=== PATIENT | male | born 1955 | race African-American/Black ===

== ENCOUNTER 2020-11-17 07:36 | Inpatient (IN) ==
[2020-11-16 15:43] LABS: Basophils # 0.1 10*3/uL (0.0-0.2); Basophils % 0.5 % (0.0-0.8); Eosinophils # 0.1 10*3/uL (0.0-0.87); Hematocrit 36.2 VOL% (42.0-52.0); Hemoglobin 11.9 GM/DL (14.0-18.0); Immature Granulocytes % 1.5 %; Immature Granulocytes Absolute 0.15 #; Lymphocytes % 19.9 % (21.2-54.2); Mean Corpuscular HGB Conc 32.9 GM/DL (32-36); Mean Corpuscular Volume 94.3 FL (87-102); Mean Platelet Volume 9.4 FL (9.6-12.0); Monocytes % 3.7 % (1.7-12.7); Neutrophils % 73.4 % (38.7-73.9); Platelet Count 277 T/CUMM (130-400); Red Blood Count 3.84 MC/CUMM (3.8-5.5); Red Cell Distribution Width 14.6 % (9.3-17.3); White Blood Count 10.1 T/CUMM (4-12)
[2020-11-16 16:03] LABS: Calcium 7.9 MG/DL (8.5-10.1); Osmolality,Calculated 280.3 MOS/KG (273-304); Potassium 3.8 MMOL/L (3.5-5.1)
[2020-11-16 16:06] LABS: Eosinophils 1 % (0-10); Lymphocytes 16 % (20-55); Platelet Estimate Normal; Segmented Neutrophils 79 % (50-85); Total Cells Counted 100
[2020-11-16 16:07] LABS: Atypical Lymphocytes Few; Dohle Bodies 1+; Toxic Granulation 1+
[2020-11-17] MEDS ORDERED: LACTATED RINGERS 1,000 ML IV SCH (08:30)
[2020-11-17] MEDS ORDERED: DEXAMETHASONE 4 MG/1 ML VIAL ONE ×2 (10:01→11:12)
[2020-11-17] MEDS ORDERED: propofoL 200 MG/20 ML VIAL IV ONE (10:01)
[2020-11-17] MEDS ORDERED: LIDOCAINE 2% 5 ML VIAL ONE (10:01)
[2020-11-17] MEDS ORDERED: SEVOFLURANE 1 UNIT/15 MINUTE INH ONE ×2 (10:01→11:11)
[2020-11-17] MEDS ORDERED: MIDAZOLAM 2 MG/2 ML VIAL ONE (10:01)
[2020-11-17] MEDS ORDERED: ONDANSETRON 4 MG/2 ML VIAL ONE (10:01)
[2020-11-17] MEDS ORDERED: fentaNYL 100 MCG/2 ML VIAL ONE ×2 (10:01→10:59)
[2020-11-17] MEDS ORDERED: LIDOCAINE 1%/EPI INJ 20 ML VIAL ONE (10:47)
[2020-11-17] MEDS ORDERED: BUPIVACAINE MPF 0.25% 30 ML VIAL ONE (10:47)
[2020-11-17] MEDS ORDERED: LIDOCAINE 1% 20 ML VIAL ONE (10:49)
[2020-11-17] MEDS ORDERED: ACETAMINOPHEN INJ 1,000 MG/100 ML VIAL IV ONE (10:56)
[2020-11-17] MEDS ORDERED: KETOROLAC 30 MG/1 ML VIAL ONE (10:56)
[2020-11-17] MEDS ORDERED: HYDROmorphone 2 MG/1 ML VIAL IV PRN (11:28)
[2020-11-17] MEDS ORDERED: ONDANSETRON 4 MG/2 ML VIAL IV PRN ×2 (11:28→12:04)
[2020-11-17] MEDS ORDERED: PROMETHAZINE 25 MG/1 ML VIAL IM PRN (12:04)
[2020-11-17] MEDS ORDERED: VANCOMYCIN INJ 1,000 MG in SODIUM CHLORIDE 0.9% 250 ML IV SCH (12:04)
[2020-11-17] MEDS ORDERED: MELOXICAM 7.5 MG TABLET PO PRN (12:04)
[2020-11-17] MEDS: HYDROmorphone 2 MG/1 ML VIAL IV PRN (12:40)
[2020-11-17 13:25] LABS: Basophils % 0.4 % (0.0-0.8); Eosinophils % 0.4 % (0.00-10.9); Hematocrit 34.9 VOL% (42.0-52.0); Hemoglobin 11.5 GM/DL (14.0-18.0); Immature Granulocytes % 1.1 %; Immature Granulocytes Absolute 0.09 #; Lymphocytes % 12.7 % (21.2-54.2); Mean Corpuscular Volume 96.1 FL (87-102); Mean Platelet Volume 8.9 FL (9.6-12.0); Monocytes % 2.9 % (1.7-12.7); Neutrophils % 82.5 % (38.7-73.9); Platelet Count 294 T/CUMM (130-400); Red Blood Count 3.63 MC/CUMM (3.8-5.5); Red Cell Distribution Width 14.7 % (9.3-17.3); White Blood Count 8.1 T/CUMM (4-12)
[2020-11-17 13:35] LABS: Calcium 8.6 MG/DL (8.5-10.1); Potassium 3.8 MMOL/L (3.5-5.1)
[2020-11-17] MEDS: LACTATED RINGERS 1,000 ML IV SCH (13:52)
[2020-11-17] MEDS: PIPERACILLIN/TAZOBACTAM 3,375 MG in SODIUM CHLORIDE 0.9% 100 ML IV SCH ×2 (13:52→20:40)
[2020-11-17 14:10] LABS: Eosinophils 1 % (0-10); Metamyelocytes 1 %; Total Cells Counted 100
[2020-11-17 14:11] LABS: Atypical Lymphocytes Few; Lymphocytes 13 % (20-55); Platelet Estimate Normal; Polychromasia Slight; Segmented Neutrophils 81 % (50-85)
[2020-11-17] MEDS: VANCOMYCIN INJ 2,000 MG in SODIUM CHLORIDE 0.9% 500 ML IV SCH (17:58)
[2020-11-18] MEDS: VANCOMYCIN INJ 2,000 MG in SODIUM CHLORIDE 0.9% 500 ML IV SCH ×2 (05:08→17:49)
[2020-11-18] MEDS: LACTATED RINGERS 1,000 ML IV SCH ×3 (05:12→23:26)
[2020-11-18] MEDS: ENOXAPARIN 40 MG/0.4 ML SYRINGE SUBCUT SCH (05:32)
[2020-11-18 06:51] LABS: Basophils % 0.3 % (0.0-0.8); Eosinophils % 0.3 % (0.00-10.9); Hematocrit 33.5 VOL% (42.0-52.0); Hemoglobin 10.6 GM/DL (14.0-18.0); Immature Granulocytes % 0.8 %; Immature Granulocytes Absolute 0.06 #; Lymphocytes # 1.4 10*3/uL (1.4-4.0); Lymphocytes % 19.3 % (21.2-54.2); Mean Corpuscular HGB Conc 31.6 GM/DL (32-36); Mean Corpuscular Volume 97.1 FL (87-102); Mean Platelet Volume 8.8 FL (9.6-12.0); Monocytes % 4.8 % (1.7-12.7); Neutrophils % 74.5 % (38.7-73.9); Platelet Count 294 T/CUMM (130-400); Red Blood Count 3.45 MC/CUMM (3.8-5.5); Red Cell Distribution Width 14.7 % (9.3-17.3); White Blood Count 7.1 T/CUMM (4-12)
[2020-11-18 07:31] LABS: Calcium 8.3 MG/DL (8.5-10.1); Potassium 3.8 MMOL/L (3.5-5.1)
[2020-11-18] MEDS: PIPERACILLIN/TAZOBACTAM 3,375 MG in SODIUM CHLORIDE 0.9% 100 ML IV SCH ×2 (09:06→16:52)
[2020-11-18] MEDS: LOSARTAN 50 MG TABLET PO SCH (09:07)
[2020-11-18] MEDS: amLODIPine 5 MG TABLET PO SCH (09:07)
[2020-11-18] MEDS: OLOPATADINE 0.2% BOTH EYES SCH (09:08)
[2020-11-18] MEDS: FLUTICASONE 50 MCG NASAL SPRAY 16 GM BOTTLE BOTH NARES SCH (09:08)
[2020-11-18] MEDS ORDERED: SODIUM HYPOCHLORITE 0.25% IRR 1 APPLIC in IV BAG 1 EACH IRRIG PRN (10:30)
[2020-11-18] MEDS: HYDROmorphone 2 MG/1 ML VIAL IV PRN ×3 (11:30→23:23)
[2020-11-18] MEDS ORDERED: HYDROmorphone 2 MG/1 ML VIAL IV ONE (12:54)
[2020-11-18] MEDS: KETOROLAC 15 MG/1 ML VIAL IV PRN (13:06)
[2020-11-18] MEDS: SIMVASTATIN 20 MG TABLET PO SCH (20:09)
[2020-11-19] MEDS: PIPERACILLIN/TAZOBACTAM 3,375 MG in SODIUM CHLORIDE 0.9% 100 ML IV SCH ×3 (03:53→20:57)
[2020-11-19 06:54] LABS: Basophils % 0.6 % (0.0-0.8); Eosinophils # 0.1 10*3/uL (0.0-0.87); Eosinophils % 2.4 % (0.00-10.9); Hematocrit 34.5 VOL% (42.0-52.0); Hemoglobin 10.5 GM/DL (14.0-18.0); Immature Granulocytes % 0.4 %; Immature Granulocytes Absolute 0.02 #; Lymphocytes # 1.1 10*3/uL (1.4-4.0); Lymphocytes % 21.5 % (21.2-54.2); Mean Corpuscular HGB Conc 30.4 GM/DL (32-36); Mean Corpuscular Volume 99.1 FL (87-102); Mean Platelet Volume 8.7 FL (9.6-12.0); Monocytes % 5.6 % (1.7-12.7); Neutrophils % 69.5 % (38.7-73.9); Platelet Count 333 T/CUMM (130-400); Red Blood Count 3.48 MC/CUMM (3.8-5.5); Red Cell Distribution Width 14.9 % (9.3-17.3)
[2020-11-19 07:25] LABS: Eosinophils 3 % (0-10); Lymphocytes 19 % (20-55); Platelet Estimate Normal; Segmented Neutrophils 71 % (50-85); Total Cells Counted 100
[2020-11-19] MEDS: LACTATED RINGERS 1,000 ML IV SCH (07:39)
[2020-11-19] MEDS: ENOXAPARIN 40 MG/0.4 ML SYRINGE SUBCUT SCH (07:45)
[2020-11-19 07:54] LABS: Potassium 3.8 MMOL/L (3.5-5.1)
[2020-11-19] MEDS: KETOROLAC 15 MG/1 ML VIAL IV PRN ×2 (08:54→16:30)
[2020-11-19] MEDS: HYDROmorphone 2 MG/1 ML VIAL IV PRN ×4 (08:56→20:57)
[2020-11-19] MEDS: OLOPATADINE 0.2% BOTH EYES SCH (09:18)
[2020-11-19] MEDS: FLUTICASONE 50 MCG NASAL SPRAY 16 GM BOTTLE BOTH NARES SCH (09:18)
[2020-11-19] MEDS: amLODIPine 5 MG TABLET PO SCH (09:18)
[2020-11-19] MEDS: LOSARTAN 50 MG TABLET PO SCH (09:18)
[2020-11-19] MEDS: VANCOMYCIN INJ 2,000 MG in SODIUM CHLORIDE 0.9% 500 ML IV SCH (09:19)
[2020-11-19] MEDS: SIMVASTATIN 20 MG TABLET PO SCH (20:57)
[2020-11-20] MEDS: PIPERACILLIN/TAZOBACTAM 3,375 MG in SODIUM CHLORIDE 0.9% 100 ML IV SCH (03:21)
[2020-11-20] MEDS: ENOXAPARIN 40 MG/0.4 ML SYRINGE SUBCUT SCH (05:19)
[2020-11-20] MEDS: amLODIPine 5 MG TABLET PO SCH (09:00)
[2020-11-20] MEDS: LOSARTAN 50 MG TABLET PO SCH (09:00)
[2020-11-20] MEDS: CLINDAMYCIN INJ 900 MG/50 ML PREMIX IV SCH ×3 (09:00→23:16)
[2020-11-20] MEDS: FLUTICASONE 50 MCG NASAL SPRAY 16 GM BOTTLE BOTH NARES SCH (09:01)
[2020-11-20] MEDS: OLOPATADINE 0.2% BOTH EYES SCH (09:01)
[2020-11-20] MEDS: HYDROmorphone 2 MG/1 ML VIAL IV PRN ×3 (09:42→23:15)
[2020-11-20] MEDS: hydrALAZINE 20 MG/1 ML VIAL IV PRN (16:39)
[2020-11-20] MEDS: SIMVASTATIN 20 MG TABLET PO SCH (21:39)
[2020-11-21] MEDS: CLINDAMYCIN INJ 900 MG/50 ML PREMIX IV SCH ×4 (00:33→23:48)
[2020-11-21] MEDS: ENOXAPARIN 40 MG/0.4 ML SYRINGE SUBCUT SCH (05:12)
[2020-11-21] MEDS: LOSARTAN 50 MG TABLET PO SCH (09:19)
[2020-11-21] MEDS: amLODIPine 5 MG TABLET PO SCH (09:19)
[2020-11-21] MEDS: FLUTICASONE 50 MCG NASAL SPRAY 16 GM BOTTLE BOTH NARES SCH (09:21)
[2020-11-21] MEDS: OLOPATADINE 0.2% BOTH EYES SCH (09:21)
[2020-11-21] MEDS: SIMVASTATIN 20 MG TABLET PO SCH (20:12)
[2020-11-21] MEDS: HYDROmorphone 2 MG/1 ML VIAL IV PRN (21:51)
[2020-11-22] MEDS: HYDROmorphone 2 MG/1 ML VIAL IV PRN ×3 (00:29→20:27)
[2020-11-22] MEDS: ENOXAPARIN 40 MG/0.4 ML SYRINGE SUBCUT SCH (05:41)
[2020-11-22] MEDS: hydrALAZINE 20 MG/1 ML VIAL IV PRN ×2 (09:52→14:58)
[2020-11-22] MEDS: LOSARTAN 50 MG TABLET PO SCH (09:53)
[2020-11-22] MEDS: amLODIPine 5 MG TABLET PO SCH (09:53)
[2020-11-22] MEDS: OLOPATADINE 0.2% BOTH EYES SCH (09:54)
[2020-11-22] MEDS: FLUTICASONE 50 MCG NASAL SPRAY 16 GM BOTTLE BOTH NARES SCH (09:54)
[2020-11-22] MEDS: CLINDAMYCIN INJ 900 MG/50 ML PREMIX IV SCH ×2 (09:54→15:45)
[2020-11-22] MEDS: LABETALOL 100 MG TABLET PO SCH ×2 (16:26→20:27)
[2020-11-22] MEDS: SIMVASTATIN 20 MG TABLET PO SCH (20:27)
[2020-11-23] MEDS: CLINDAMYCIN INJ 900 MG/50 ML PREMIX IV SCH ×4 (00:01→23:33)
[2020-11-23] MEDS: ENOXAPARIN 40 MG/0.4 ML SYRINGE SUBCUT SCH (05:59)
[2020-11-23] MEDS: HYDROmorphone 2 MG/1 ML VIAL IV PRN ×4 (07:00→23:33)
[2020-11-23] MEDS: OLOPATADINE 0.2% BOTH EYES SCH (08:44)
[2020-11-23] MEDS: FLUTICASONE 50 MCG NASAL SPRAY 16 GM BOTTLE BOTH NARES SCH (08:44)
[2020-11-23] MEDS: LABETALOL 100 MG TABLET PO SCH ×2 (08:45→20:53)
[2020-11-23] MEDS: amLODIPine 5 MG TABLET PO SCH (08:45)
[2020-11-23] MEDS: LOSARTAN 50 MG TABLET PO SCH (08:45)
[2020-11-23] MEDS: SIMVASTATIN 20 MG TABLET PO SCH (20:53)
[2020-11-24] MEDS: ENOXAPARIN 40 MG/0.4 ML SYRINGE SUBCUT SCH (05:53)
[2020-11-24] MEDS: CLINDAMYCIN INJ 900 MG/50 ML PREMIX IV SCH ×2 (08:29→15:58)
[2020-11-24] MEDS: amLODIPine 5 MG TABLET PO SCH (08:30)
[2020-11-24] MEDS: FLUTICASONE 50 MCG NASAL SPRAY 16 GM BOTTLE BOTH NARES SCH (08:30)
[2020-11-24] MEDS: LABETALOL 100 MG TABLET PO SCH ×2 (08:30→20:34)
[2020-11-24] MEDS: OLOPATADINE 0.2% BOTH EYES SCH (08:30)
[2020-11-24] MEDS: LOSARTAN 50 MG TABLET PO SCH (08:30)
[2020-11-24] MEDS: HYDROmorphone 2 MG/1 ML VIAL IV PRN (12:40)
[2020-11-24] MEDS ORDERED: HYDROmorphone 2 MG/1 ML VIAL IV PRN (14:31)
[2020-11-24] MEDS: KETOROLAC 15 MG/1 ML VIAL IV SCH ×2 (14:57→20:34)
[2020-11-24] MEDS: SIMVASTATIN 20 MG TABLET PO SCH (20:35)
[2020-11-25] MEDS: CLINDAMYCIN INJ 900 MG/50 ML PREMIX IV SCH ×4 (00:21→23:55)
[2020-11-25] MEDS: ENOXAPARIN 40 MG/0.4 ML SYRINGE SUBCUT SCH (06:17)
[2020-11-25] MEDS: KETOROLAC 15 MG/1 ML VIAL IV SCH ×4 (06:17→21:15)
[2020-11-25] MEDS: amLODIPine 5 MG TABLET PO SCH (09:24)
[2020-11-25] MEDS: FLUTICASONE 50 MCG NASAL SPRAY 16 GM BOTTLE BOTH NARES SCH (09:24)
[2020-11-25] MEDS: LOSARTAN 50 MG TABLET PO SCH (09:24)
[2020-11-25] MEDS: LABETALOL 100 MG TABLET PO SCH ×2 (09:24→21:15)
[2020-11-25] MEDS: OLOPATADINE 0.2% BOTH EYES SCH (09:24)
[2020-11-25] MEDS: SIMVASTATIN 20 MG TABLET PO SCH (21:15)
[2020-11-26] MEDS: KETOROLAC 15 MG/1 ML VIAL IV SCH ×4 (03:43→21:08)
[2020-11-26 05:42] LABS: Basophils # 0.1 10*3/uL (0.0-0.2); Basophils % 1.7 % (0.0-0.8); Eosinophils # 0.1 10*3/uL (0.0-0.87); Eosinophils % 3.4 % (0.00-10.9); Hemoglobin 9.3 GM/DL (14.0-18.0); Lymphocytes # 1.2 10*3/uL (1.4-4.0); Lymphocytes % 41.4 % (21.2-54.2); Mean Corpuscular Volume 100.6 FL (87-102); Mean Platelet Volume 9.2 FL (9.6-12.0); Monocytes % 11.7 % (1.7-12.7); Neutrophils % 41.8 % (38.7-73.9); Platelet Count 227 T/CUMM (130-400); Red Blood Count 3.08 MC/CUMM (3.8-5.5); Red Cell Distribution Width 14.9 % (9.3-17.3); White Blood Count 2.9 T/CUMM (4-12)
[2020-11-26 06:08] LABS: Anisocytosis 1+; Platelet Estimate Normal
[2020-11-26 06:09] LABS: Macrocytosis 1+
[2020-11-26 06:11] LABS: Calcium 8.3 MG/DL (8.5-10.1); Osmolality,Calculated 283.1 MOS/KG (273-304); Potassium 3.7 MMOL/L (3.5-5.1)
[2020-11-26] MEDS: ENOXAPARIN 40 MG/0.4 ML SYRINGE SUBCUT SCH (06:11)
[2020-11-26] MEDS: LOSARTAN 50 MG TABLET PO SCH (08:28)
[2020-11-26] MEDS: LABETALOL 100 MG TABLET PO SCH ×2 (08:28→21:08)
[2020-11-26] MEDS: amLODIPine 5 MG TABLET PO SCH (08:28)
[2020-11-26] MEDS: CLINDAMYCIN INJ 900 MG/50 ML PREMIX IV SCH ×2 (08:28→17:07)
[2020-11-26] MEDS: OLOPATADINE 0.2% BOTH EYES SCH (08:29)
[2020-11-26] MEDS: FLUTICASONE 50 MCG NASAL SPRAY 16 GM BOTTLE BOTH NARES SCH (08:29)
[2020-11-26] MEDS: SIMVASTATIN 20 MG TABLET PO SCH (21:08)
[2020-11-27] MEDS: CLINDAMYCIN INJ 900 MG/50 ML PREMIX IV SCH ×3 (00:46→16:12)
[2020-11-27] MEDS: KETOROLAC 15 MG/1 ML VIAL IV SCH ×4 (03:01→21:04)
[2020-11-27] MEDS: hydrALAZINE 20 MG/1 ML VIAL IV PRN (03:03)
[2020-11-27] MEDS: ENOXAPARIN 40 MG/0.4 ML SYRINGE SUBCUT SCH (06:00)
[2020-11-27] MEDS: FLUTICASONE 50 MCG NASAL SPRAY 16 GM BOTTLE BOTH NARES SCH (09:27)
[2020-11-27] MEDS: OLOPATADINE 0.2% BOTH EYES SCH (09:28)
[2020-11-27] MEDS: LOSARTAN 50 MG TABLET PO SCH (09:28)
[2020-11-27] MEDS: amLODIPine 5 MG TABLET PO SCH (09:28)
[2020-11-27] MEDS: LABETALOL 100 MG TABLET PO SCH ×2 (09:28→21:03)
[2020-11-27] MEDS: SIMVASTATIN 20 MG TABLET PO SCH (21:03)
[2020-11-28] MEDS: CLINDAMYCIN INJ 900 MG/50 ML PREMIX IV SCH ×3 (00:59→16:12)
[2020-11-28] MEDS: ALBUTEROL/IPRATROPIUM 3 ML NEB RESP TX SCH ×4 (01:15→19:13)
[2020-11-28] MEDS: KETOROLAC 15 MG/1 ML VIAL IV SCH ×4 (02:50→22:22)
[2020-11-28] MEDS: ENOXAPARIN 40 MG/0.4 ML SYRINGE SUBCUT SCH (05:55)
[2020-11-28] MEDS: amLODIPine 5 MG TABLET PO SCH (09:28)
[2020-11-28] MEDS: LABETALOL 100 MG TABLET PO SCH ×2 (09:28→22:22)
[2020-11-28] MEDS: hydrALAZINE 20 MG/1 ML VIAL IV PRN (09:29)
[2020-11-28] MEDS: LOSARTAN 50 MG TABLET PO SCH (09:29)
[2020-11-28] MEDS: OLOPATADINE 0.2% BOTH EYES SCH (09:30)
[2020-11-28] MEDS: FLUTICASONE 50 MCG NASAL SPRAY 16 GM BOTTLE BOTH NARES SCH (09:30)
[2020-11-28] MEDS: SIMVASTATIN 20 MG TABLET PO SCH (22:22)
[2020-11-29] MEDS: CLINDAMYCIN INJ 900 MG/50 ML PREMIX IV SCH ×3 (00:47→16:39)
[2020-11-29] MEDS: ALBUTEROL/IPRATROPIUM 3 ML NEB RESP TX SCH ×4 (01:18→19:13)
[2020-11-29] MEDS: KETOROLAC 15 MG/1 ML VIAL IV SCH ×2 (06:45→08:23)
[2020-11-29] MEDS: ENOXAPARIN 40 MG/0.4 ML SYRINGE SUBCUT SCH (06:52)
[2020-11-29] MEDS: LOSARTAN 50 MG TABLET PO SCH (08:19)
[2020-11-29] MEDS: LABETALOL 100 MG TABLET PO SCH ×2 (08:20→20:45)
[2020-11-29] MEDS: amLODIPine 5 MG TABLET PO SCH (08:20)
[2020-11-29] MEDS: FLUTICASONE 50 MCG NASAL SPRAY 16 GM BOTTLE BOTH NARES SCH (08:21)
[2020-11-29] MEDS: OLOPATADINE 0.2% BOTH EYES SCH (08:21)
[2020-11-29] MEDS: ACETAMINOPHEN 325 MG TABLET PO PRN (18:26)
[2020-11-29] MEDS: SIMVASTATIN 20 MG TABLET PO SCH (20:45)
[2020-11-30] MEDS: CLINDAMYCIN INJ 900 MG/50 ML PREMIX IV SCH ×2 (00:17→09:25)
[2020-11-30] MEDS: ALBUTEROL/IPRATROPIUM 3 ML NEB RESP TX SCH ×3 (00:26→13:05)
[2020-11-30] MEDS: ENOXAPARIN 40 MG/0.4 ML SYRINGE SUBCUT SCH (05:34)
[2020-11-30] MEDS: FLUTICASONE 50 MCG NASAL SPRAY 16 GM BOTTLE BOTH NARES SCH (09:26)
[2020-11-30] MEDS: LOSARTAN 50 MG TABLET PO SCH (09:26)
[2020-11-30] MEDS: amLODIPine 5 MG TABLET PO SCH (09:26)
[2020-11-30] MEDS: LABETALOL 100 MG TABLET PO SCH (09:26)
[2020-11-30] MEDS: OLOPATADINE 0.2% BOTH EYES SCH (09:28)
[2020-11-30] MEDS: ACETAMINOPHEN 325 MG TABLET PO PRN (12:16)
[2020-11-30 13:00] VITALS: BP 146/67
== END 2020-11-30 16:30 | DRG 264 ==
LOC: N.OR 07:36 → N.SDSINP 07:41 → N.3E 11:06
PROVIDERS: ADMIT Surgery; ATTEND Surgery

== ENCOUNTER 2021-02-03 20:42 | Inpatient (IN) ==
[2021-02-03 22:13] LABS: Basophils % 0.4 % (0.0-0.8); Eosinophils # 0.1 10*3/uL (0.0-0.87); Eosinophils % 0.9 % (0.00-10.9); Hematocrit 38.4 VOL% (42.0-52.0); Immature Granulocytes % 0.9 %; Immature Granulocytes Absolute 0.07 #; Lymphocytes # 1.5 10*3/uL (1.4-4.0); Lymphocytes % 20.3 % (21.2-54.2); Mean Corpuscular HGB Conc 29.4 GM/DL (32-36); Mean Corpuscular Volume 102.1 FL (87-102); Neutrophils % 71.5 % (38.7-73.9); Platelet Count 169 T/CUMM (130-400); Red Blood Count 3.76 MC/CUMM (3.8-5.5); Red Cell Distribution Width 18.3 % (9.3-17.3); White Blood Count 7.5 T/CUMM (4-12)
[2021-02-03 22:20] LABS: Hemoglobin 11.3 GM/DL (14.0-18.0)
[2021-02-03 22:36] LABS: Alanine Aminotransferase 19 U/L (16-61); Albumin 2.6 G/DL (3.4-5.0); Alkaline Phosphatase 71 U/L (45-117); Aspartate Amino Transferase 13 U/L (0-37); Blood Urea Nitrogen 12 MG/DL (7-18); Calcium 9.1 MG/DL (8.5-10.1); Carbon Dioxide 28 MMOL/L (21-32); Estimated Glom Filtration Rate 145 ML/MIN; Glucose 148 MG/DL (74-106); Osmolality,Calculated 288.8 MOS/KG (273-304); Potassium 3.7 MMOL/L (3.5-5.1); Sodium 144 MMOL/L (136-145); Total Protein 7.2 G/DL (6.4-8.2)
[2021-02-03] MEDS ORDERED: SODIUM CHLORIDE 0.9% 1,000 ML IV STA (23:15)
[2021-02-04] MEDS ORDERED: hydrALAZINE 20 MG/1 ML VIAL IV STA (01:15)
[2021-02-04] MEDS ORDERED: LABETALOL 20 MG/4 ML SYRINGE IV STA (01:39)
[2021-02-04] MEDS ORDERED: ONDANSETRON 4 MG/2 ML VIAL IV STA (01:58)
[2021-02-04] MEDS ORDERED: ONDANSETRON 4 MG/2 ML VIAL IV PRN (02:49)
[2021-02-04] MEDS ORDERED: ALBUTEROL 2.5 MG/3 ML NEB RESP TX PRN (02:49)
[2021-02-04] MEDS ORDERED: ENOXAPARIN 100 MG/ML SYRINGE SUBCUT STA (04:07)
[2021-02-04] MEDS ORDERED: ALTEPLASE 12 MG in SODIUM CHLORIDE 0.9% 240 ML IV SCH (06:00)
[2021-02-04] MEDS ORDERED: HEPARIN DRIP 50,000 UNITS/1,000 ML PREMIX IV ONE (07:47)
[2021-02-04] MEDS: SODIUM CHLORIDE 0.9% 1,000 ML IV SCH ×2 (07:52→07:53)
[2021-02-04] MEDS: HEPARIN DRIP 25,000 UNITS/500 ML PREMIX IV SCH ×2 (08:31)
[2021-02-04 08:41] LABS: Bacteria,Urine Occasional /HPF (Few); Bilirubin,Urine Negative (Negative); Blood, Urine Negative (Negative); Glucose,Urine (UA) Negative (Negative); Ketones,Urine Negative (Negative); Nitrite,Urine Negative (Negative); Protein,Urine Negative; RBC,Urine 2 /HPF (0-4); Urine Appearance CLEAR (Clear); Urine Color Yellow (Yellow); Urine Specific Gravity 1.026 (1.001-1.035); Urine Urobilinogen < 2.0 EU/DL (0.2-1.0)
[2021-02-04] MEDS: MORPHINE 2 MG/1 ML SYRINGE IV PRN ×2 (17:38→21:18)
[2021-02-04] MEDS ORDERED: CLORAZEPATE 3.75 MG TABLET PO PRN (21:09)
[2021-02-05 04:52] LABS: Basophils % 0.3 % (0.0-0.8); Eosinophils # 0.1 10*3/uL (0.0-0.87); Hematocrit 34.9 VOL% (42.0-52.0); Hemoglobin 10.3 GM/DL (14.0-18.0); Immature Granulocytes % 0.5 %; Immature Granulocytes Absolute 0.05 #; Lymphocytes # 1.6 10*3/uL (1.4-4.0); Lymphocytes % 16.9 % (21.2-54.2); Mean Corpuscular HGB Conc 29.5 GM/DL (32-36); Mean Platelet Volume 10.1 FL (9.6-12.0); Monocytes % 9.9 % (1.7-12.7); Neutrophils % 71.4 % (38.7-73.9); Platelet Count 112 T/CUMM (130-400); Red Blood Count 3.42 MC/CUMM (3.8-5.5); Red Cell Distribution Width 18.5 % (9.3-17.3); White Blood Count 9.6 T/CUMM (4-12)
[2021-02-05 05:09] LABS: INR 1.1; PT Patient Result 12.5 SECS (10.5-12.0); Partial Thromboplastin Time 40.9 SECS (23.8-32.1)
[2021-02-05 05:14] LABS: Albumin 2.2 G/DL (3.4-5.0); Bilirubin,Total 1.2 MG/DL (0.20-1.00); Calcium 8.6 MG/DL (8.5-10.1); Osmolality,Calculated 280.3 MOS/KG (273-304); Total Protein 6.4 G/DL (6.4-8.2)
[2021-02-05] MEDS: MORPHINE 2 MG/1 ML SYRINGE IV PRN (09:03)
[2021-02-05] MEDS: HEPARIN DRIP 25,000 UNITS/500 ML PREMIX IV SCH ×2 (09:54→09:55)
[2021-02-05] MEDS: SODIUM CHLORIDE 0.9% 1,000 ML IV SCH ×2 (09:56)
[2021-02-05] MEDS: APIXABAN 5 MG TABLET PO SCH ×2 (11:30→20:45)
[2021-02-05] MEDS: MELATONIN 3 MG TABLET PO SCH (20:45)
[2021-02-05] MEDS ORDERED: DIGOXIN 0.5 MG/2 ML AMP IV ONE (23:00)
[2021-02-06 08:33] LABS: Basophils % 0.7 % (0.0-0.8); Eosinophils # 0.3 10*3/uL (0.0-0.87); Eosinophils % 4.6 % (0.00-10.9); Hematocrit 36.1 VOL% (42.0-52.0); Hemoglobin 10.9 GM/DL (14.0-18.0); Immature Granulocytes % 0.5 %; Immature Granulocytes Absolute 0.03 #; Lymphocytes # 1.2 10*3/uL (1.4-4.0); Mean Corpuscular HGB Conc 30.2 GM/DL (32-36); Mean Corpuscular Volume 101.4 FL (87-102); Mean Platelet Volume 9.8 FL (9.6-12.0); Monocytes % 9.8 % (1.7-12.7); Neutrophils % 64.4 % (38.7-73.9); Platelet Count 122 T/CUMM (130-400); Red Blood Count 3.56 MC/CUMM (3.8-5.5); Red Cell Distribution Width 17.7 % (9.3-17.3); White Blood Count 6.1 T/CUMM (4-12)
[2021-02-06 08:39] LABS: Calcium 9.1 MG/DL (8.5-10.1); Osmolality,Calculated 277.4 MOS/KG (273-304); Potassium 3.8 MMOL/L (3.5-5.1)
[2021-02-06] MEDS: APIXABAN 5 MG TABLET PO SCH ×2 (09:54→21:15)
[2021-02-06] MEDS: SOTALOL 80 MG TABLET PO SCH ×2 (11:17→21:14)
[2021-02-06] MEDS: MELATONIN 3 MG TABLET PO SCH (21:15)
[2021-02-07 04:27] LABS: Basophils % 0.4 % (0.0-0.8); Eosinophils # 0.3 10*3/uL (0.0-0.87); Eosinophils % 5.3 % (0.00-10.9); Hematocrit 34.3 VOL% (42.0-52.0); Hemoglobin 10.3 GM/DL (14.0-18.0); Immature Granulocytes % 0.6 %; Immature Granulocytes Absolute 0.03 #; Lymphocytes # 1.3 10*3/uL (1.4-4.0); Mean Corpuscular Volume 99.1 FL (87-102); Mean Platelet Volume 9.2 FL (9.6-12.0); Monocytes % 10.2 % (1.7-12.7); Neutrophils % 57.5 % (38.7-73.9); Platelet Count 119 T/CUMM (130-400); Red Blood Count 3.46 MC/CUMM (3.8-5.5); Red Cell Distribution Width 17.5 % (9.3-17.3); White Blood Count 4.9 T/CUMM (4-12)
[2021-02-07 04:44] LABS: Calcium 8.9 MG/DL (8.5-10.1); Osmolality,Calculated 274.7 MOS/KG (273-304); Potassium 3.4 MMOL/L (3.5-5.1)
[2021-02-07 05:12] LABS: Eosinophils 6 % (0-10); Lymphocytes 23 % (20-55); Segmented Neutrophils 58 % (50-85); Total Cells Counted 100
[2021-02-07 05:13] LABS: Anisocytosis 1+; Hypochromasia 1+; Microcytosis 1+; Ovalocytes Slight
[2021-02-07 05:14] LABS: Platelet Estimate Decreased
[2021-02-07] MEDS ORDERED: POTASSIUM CHLORIDE 20 MEQ TABLET PO ONE (09:28)
[2021-02-07 09:57] LABS: % Iron Saturation 20.5 % (18-50); Folate 12.48 NG/ML (5.38-24.0)
[2021-02-07] MEDS: APIXABAN 5 MG TABLET PO SCH ×2 (10:00→21:30)
[2021-02-07] MEDS: SOTALOL 80 MG TABLET PO SCH ×2 (10:00→21:30)
[2021-02-07] MEDS ORDERED: MAGNESIUM SULF RIDER 2 GM/50 ML PREMIX IV ONE (13:44)
[2021-02-07] MEDS: MELATONIN 3 MG TABLET PO SCH (21:30)
[2021-02-07] MEDS: DOXYCYCLINE MONOHYDRATE SUSP 5 MG/ML 60 ML/BOTTLE PO SCH (21:31)
[2021-02-08 06:04] LABS: Basophils % 0.8 % (0.0-0.8); Eosinophils # 0.3 10*3/uL (0.0-0.87); Eosinophils % 6.8 % (0.00-10.9); Hematocrit 33.1 VOL% (42.0-52.0); Hemoglobin 10.2 GM/DL (14.0-18.0); Immature Granulocytes % 0.8 %; Immature Granulocytes Absolute 0.03 #; Lymphocytes # 1.1 10*3/uL (1.4-4.0); Lymphocytes % 28.6 % (21.2-54.2); Mean Corpuscular HGB Conc 30.8 GM/DL (32-36); Mean Platelet Volume 9.4 FL (9.6-12.0); Monocytes % 14.3 % (1.7-12.7); Neutrophils % 48.7 % (38.7-73.9); Platelet Count 118 T/CUMM (130-400); Red Blood Count 3.31 MC/CUMM (3.8-5.5); Red Cell Distribution Width 17.2 % (9.3-17.3); White Blood Count 3.8 T/CUMM (4-12)
[2021-02-08 06:36] LABS: Calcium 8.6 MG/DL (8.5-10.1); Potassium 3.1 MMOL/L (3.5-5.1)
[2021-02-08 06:40] LABS: Risk Ratio 6.51; VLDL Cholesterol 22.2 MG/DL
[2021-02-08] MEDS ORDERED: POTASSIUM CHLORIDE 20 MEQ TABLET PO ONE (08:21)
[2021-02-08] MEDS: SOTALOL 80 MG TABLET PO SCH ×2 (09:44→20:12)
[2021-02-08] MEDS: FERROUS SULFATE 325 MG TABLET PO SCH (09:47)
[2021-02-08] MEDS: APIXABAN 5 MG TABLET PO SCH ×2 (09:47→20:12)
[2021-02-08] MEDS: DOXYCYCLINE MONOHYDRATE SUSP 5 MG/ML 60 ML/BOTTLE PO SCH ×2 (09:48→20:12)
[2021-02-08] MEDS ORDERED: MAGNESIUM SULF RIDER 4 GM/100 ML PREMIX IV PRN (11:59)
[2021-02-08] MEDS ORDERED: MAGNESIUM SULF RIDER 2 GM/50 ML PREMIX IV PRN (11:59)
[2021-02-08] MEDS: POTASSIUM CHLORIDE 20 MEQ TABLET PO PRN ×3 (12:27→18:37)
[2021-02-08] MEDS: MELATONIN 3 MG TABLET PO SCH (20:12)
[2021-02-09] MEDS: LOSARTAN 50 MG TABLET PO SCH (10:38)
[2021-02-09] MEDS: SOTALOL 80 MG TABLET PO SCH ×2 (10:38→20:26)
[2021-02-09] MEDS: APIXABAN 5 MG TABLET PO SCH ×2 (10:39→20:26)
[2021-02-09] MEDS: ASCORBIC ACID 500 MG TABLET PO SCH ×2 (10:39→20:26)
[2021-02-09] MEDS: FERROUS SULFATE 325 MG TABLET PO SCH (10:39)
[2021-02-09 14:32] LABS: Eosinophils # 0.3 10*3/uL (0.0-0.87); Eosinophils % 6.2 % (0.00-10.9); Hematocrit 35.8 VOL% (42.0-52.0); Hemoglobin 10.9 GM/DL (14.0-18.0); Immature Granulocytes % 0.7 %; Immature Granulocytes Absolute 0.03 #; Lymphocytes # 1.3 10*3/uL (1.4-4.0); Lymphocytes % 31.3 % (21.2-54.2); Mean Corpuscular HGB Conc 30.4 GM/DL (32-36); Mean Corpuscular Volume 99.7 FL (87-102); Mean Platelet Volume 9.7 FL (9.6-12.0); Monocytes % 12.2 % (1.7-12.7); Neutrophils % 48.6 % (38.7-73.9); Platelet Count 148 T/CUMM (130-400); Red Blood Count 3.59 MC/CUMM (3.8-5.5); Red Cell Distribution Width 17.2 % (9.3-17.3); White Blood Count 4.2 T/CUMM (4-12)
[2021-02-09 15:16] LABS: Calcium 8.8 MG/DL (8.5-10.1); Osmolality,Calculated 280.1 MOS/KG (273-304)
[2021-02-09] MEDS: DOXYCYCLINE MONOHYDRATE SUSP 5 MG/ML 60 ML/BOTTLE PO SCH ×2 (15:16→20:26)
[2021-02-09 15:41] LABS: Eosinophils 7 % (0-10); Lymphocytes 37 % (20-55); Segmented Neutrophils 47 % (50-85); Total Cells Counted 100
[2021-02-09 15:43] LABS: Atypical Lymphocytes Moderate; Hypochromasia Slight; Ovalocytes Slight; Smudge Cells Few
[2021-02-09 15:44] LABS: Anisocytosis 2+; Platelet Estimate Normal
[2021-02-09] MEDS: MELATONIN 3 MG TABLET PO SCH (20:26)
[2021-02-10 06:31] LABS: Basophils % 0.7 % (0.0-0.8); Eosinophils # 0.2 10*3/uL (0.0-0.87); Eosinophils % 4.9 % (0.00-10.9); Hematocrit 34.2 VOL% (42.0-52.0); Hemoglobin 10.4 GM/DL (14.0-18.0); Immature Granulocytes % 0.9 %; Immature Granulocytes Absolute 0.04 #; Lymphocytes # 1.3 10*3/uL (1.4-4.0); Lymphocytes % 29.5 % (21.2-54.2); Mean Corpuscular HGB Conc 30.4 GM/DL (32-36); Mean Corpuscular Volume 100.6 FL (87-102); Mean Platelet Volume 10.1 FL (9.6-12.0); Monocytes % 9.1 % (1.7-12.7); Neutrophils % 54.9 % (38.7-73.9); Platelet Count 135 T/CUMM (130-400); Red Cell Distribution Width 17.2 % (9.3-17.3); White Blood Count 4.3 T/CUMM (4-12)
[2021-02-10 06:56] LABS: Calcium 8.6 MG/DL (8.5-10.1); Potassium 3.7 MMOL/L (3.5-5.1)
[2021-02-10] MEDS: FERROUS SULFATE 325 MG TABLET PO SCH (09:33)
[2021-02-10] MEDS: LOSARTAN 50 MG TABLET PO SCH (09:34)
[2021-02-10] MEDS: SOTALOL 80 MG TABLET PO SCH (09:34)
[2021-02-10] MEDS: ASCORBIC ACID 500 MG TABLET PO SCH (09:34)
[2021-02-10] MEDS: APIXABAN 5 MG TABLET PO SCH (09:34)
[2021-02-10] MEDS: DOXYCYCLINE MONOHYDRATE SUSP 5 MG/ML 60 ML/BOTTLE PO SCH (09:36)
[2021-02-10 12:47] VITALS: BP 151/72
[2021-02-12] MEDS ORDERED: APIXABAN 5 MG TABLET PO SCH (21:00)
== END 2021-02-10 15:15 | disposition swing bed (61) | DRG 175 ==
LOC: EDUNIT# → EDBD → N.ED 20:42 → SUATTDRO 02-04 04:42 → N.EDINP 02-04 04:42 → N.ICU 02-04 08:30 → N.TELEN 02-05 15:57
PROVIDERS: ADMIT Internal Medicine; ATTEND Internal Medicine

== ENCOUNTER 2021-05-17 15:15 | Inpatient (IN) ==
[2021-05-17] MEDS ORDERED: BISACODYL 5 MG TABLET PO PRN (15:20)
[2021-05-17] MEDS ORDERED: ACETAMINOPHEN 325 MG TABLET PO PRN (15:20)
[2021-05-17] MEDS ORDERED: ALBUTEROL/IPRATROPIUM 3 ML NEB RESP TX PRN (15:20)
[2021-05-17] MEDS ORDERED: ONDANSETRON 4 MG/2 ML VIAL IV PRN (15:20)
[2021-05-17] MEDS: MORPHINE 2 MG/1 ML SYRINGE IV PRN (19:14)
[2021-05-17 19:28] LABS: Basophils % 0.2 % (0.0-0.8); Eosinophils # 0.1 10*3/uL (0.0-0.87); Eosinophils % 0.9 % (0.00-10.9); Hematocrit 38.6 VOL% (42.0-52.0); Hemoglobin 11.9 GM/DL (14.0-18.0); Immature Granulocytes % 7.4 %; Immature Granulocytes Absolute 0.74 #; Lymphocytes # 1.2 10*3/uL (1.4-4.0); Mean Corpuscular HGB Conc 30.8 GM/DL (32-36); Mean Corpuscular Volume 97.5 FL (87-102); Mean Platelet Volume 9.7 FL (9.6-12.0); Monocytes % 5.4 % (1.7-12.7); Neutrophils % 74.1 % (38.7-73.9); Platelet Count 164 T/CUMM (130-400); Red Blood Count 3.96 MC/CUMM (3.8-5.5); Red Cell Distribution Width 15.6 % (9.3-17.3)
[2021-05-17 19:41] LABS: Calcium 9.2 MG/DL (8.5-10.1); Osmolality,Calculated 269.1 MOS/KG (273-304); Potassium 5.1 MMOL/L (3.5-5.1)
[2021-05-17] MEDS: PIPERACILLIN/TAZOBACTAM 3,375 MG in SODIUM CHLORIDE 0.9% 100 ML IV SCH (19:46)
[2021-05-17 19:58] LABS: Band Neutrophils 2 % (0-10); Eosinophils 1 % (0-10); Lymphocytes 8 % (20-55); Segmented Neutrophils 87 % (50-85); Total Cells Counted 100
[2021-05-17 20:00] LABS: Ovalocytes Slight
[2021-05-17 20:01] LABS: Hypochromia Slight; Platelet Estimate Normal
[2021-05-17] MEDS: KETOROLAC 15 MG/1 ML VIAL IV PRN (20:27)
[2021-05-17] MEDS: APIXABAN 5 MG TABLET PO SCH (20:29)
[2021-05-17] MEDS: LACTATED RINGERS 1,000 ML IV SCH (20:34)
[2021-05-18] MEDS: MORPHINE 2 MG/1 ML SYRINGE IV PRN ×3 (01:26→23:40)
[2021-05-18] MEDS: PIPERACILLIN/TAZOBACTAM 3,375 MG in SODIUM CHLORIDE 0.9% 100 ML IV SCH ×3 (04:24→21:55)
[2021-05-18 05:13] LABS: Basophils % 0.2 % (0.0-0.8); Eosinophils # 0.2 10*3/uL (0.0-0.87); Hematocrit 34.8 VOL% (42.0-52.0); Hemoglobin 10.6 GM/DL (14.0-18.0); Immature Granulocytes % 6.1 %; Immature Granulocytes Absolute 0.53 #; Lymphocytes # 1.1 10*3/uL (1.4-4.0); Mean Corpuscular HGB Conc 30.5 GM/DL (32-36); Mean Platelet Volume 9.5 FL (9.6-12.0); Neutrophils % 72.7 % (38.7-73.9); Platelet Count 148 T/CUMM (130-400); Red Blood Count 3.48 MC/CUMM (3.8-5.5); Red Cell Distribution Width 15.8 % (9.3-17.3); White Blood Count 8.6 T/CUMM (4-12)
[2021-05-18 05:28] LABS: Calcium 9.1 MG/DL (8.5-10.1); Osmolality,Calculated 271.2 MOS/KG (273-304); Potassium 4.4 MMOL/L (3.5-5.1)
[2021-05-18 05:48] LABS: Hypochromia 1+; Lymphocytes 17 % (20-55); Microcytosis 1+; Platelet Estimate Adequate; Segmented Neutrophils 79 % (50-85); Total Cells Counted 100
[2021-05-18] MEDS: LACTATED RINGERS 1,000 ML IV SCH ×2 (07:15→17:40)
[2021-05-18] MEDS ORDERED: ALBUTEROL 2.5 MG/3 ML NEB RESP TX PRN (07:18)
[2021-05-18] MEDS ORDERED: ALBUTEROL/IPRATROPIUM 3 ML NEB RESP TX PRN (07:30)
[2021-05-18] MEDS ORDERED: VANCOMYCIN INJ 1,000 MG in SODIUM CHLORIDE 0.9% 250 ML IV SCH (07:30)
[2021-05-18] MEDS: VANCOMYCIN INJ 2,000 MG in SODIUM CHLORIDE 0.9% 500 ML IV SCH ×2 (10:14→21:55)
[2021-05-18] MEDS: ASCORBIC ACID 500 MG TABLET PO SCH ×2 (10:15→21:55)
[2021-05-18] MEDS: APIXABAN 5 MG TABLET PO SCH (10:15)
[2021-05-18] MEDS: FLUTICASONE 50 MCG NASAL SPRAY 16 GM BOTTLE BOTH NARES SCH (10:15)
[2021-05-18] MEDS: FUROSEMIDE 20 MG TABLET PO SCH (10:15)
[2021-05-18] MEDS: POTASSIUM CHLORIDE 20 MEQ TABLET PO SCH (10:16)
[2021-05-18] MEDS: FERROUS SULFATE 325 MG TABLET PO SCH (10:16)
[2021-05-18] MEDS: MULTIVITAMIN (CENTRUM) TABLET PO SCH (10:16)
[2021-05-18] MEDS: LORATADINE 10 MG TABLET PO SCH (10:16)
[2021-05-18] MEDS: FAMOTIDINE 20 MG TABLET PO SCH (10:16)
[2021-05-18] MEDS: PANTOPRAZOLE 40 MG TABLET PO SCH (10:16)
[2021-05-18] MEDS: ZINC SULFATE 220 MG CAPSULE PO SCH (10:17)
[2021-05-18] MEDS: LOSARTAN 50 MG TABLET PO SCH (10:19)
[2021-05-18] MEDS: SOTALOL 80 MG TABLET PO SCH ×2 (10:19→21:55)
[2021-05-18] MEDS: OLOPATADINE 0.1% OPH SOLN 5 ML BOTTLE BOTH EYES SCH (10:20)
[2021-05-18] MEDS: CHOLECALCIFEROL 1,000 UNIT TABLET PO SCH (10:57)
[2021-05-18 15:52] LABS: INR 1.1; PT Patient Result 12.6 SECS (10.5-12.0); Partial Thromboplastin Time 32.5 SECS (23.8-32.1)
[2021-05-18] MEDS ORDERED: cefTRIAXone 1,000 MG in SODIUM CHLORIDE 0.9% 100 ML IV ONE (16:06)
[2021-05-18] MEDS: MELATONIN 3 MG TABLET PO SCH (21:55)
[2021-05-19] MEDS: PIPERACILLIN/TAZOBACTAM 3,375 MG in SODIUM CHLORIDE 0.9% 100 ML IV SCH ×3 (03:40→22:47)
[2021-05-19] MEDS ORDERED: cefTRIAXone 1,000 MG in SODIUM CHLORIDE 0.9% 100 ML IV ONE (06:00)
[2021-05-19 08:06] LABS: Basophils % 0.2 % (0.0-0.8); Eosinophils # 0.1 10*3/uL (0.0-0.87); Eosinophils % 1.3 % (0.00-10.9); Hematocrit 31.9 VOL% (42.0-52.0); Hemoglobin 9.9 GM/DL (14.0-18.0); Immature Granulocytes Absolute 0.11 #; Lymphocytes # 1.2 10*3/uL (1.4-4.0); Lymphocytes % 11.4 % (21.2-54.2); Mean Corpuscular Volume 98.2 FL (87-102); Mean Platelet Volume 9.2 FL (9.6-12.0); Monocytes % 4.4 % (1.7-12.7); Neutrophils % 81.7 % (38.7-73.9); Platelet Count 172 T/CUMM (130-400); Red Blood Count 3.25 MC/CUMM (3.8-5.5); Red Cell Distribution Width 15.7 % (9.3-17.3); White Blood Count 10.8 T/CUMM (4-12)
[2021-05-19] MEDS: MORPHINE 2 MG/1 ML SYRINGE IV PRN ×2 (08:08→22:46)
[2021-05-19] MEDS: VANCOMYCIN INJ 2,000 MG in SODIUM CHLORIDE 0.9% 500 ML IV SCH (08:17)
[2021-05-19] MEDS: CHOLECALCIFEROL 1,000 UNIT TABLET PO SCH (08:17)
[2021-05-19] MEDS: SOTALOL 80 MG TABLET PO SCH ×2 (08:18→20:57)
[2021-05-19] MEDS: ZINC SULFATE 220 MG CAPSULE PO SCH (08:18)
[2021-05-19] MEDS: LORATADINE 10 MG TABLET PO SCH (08:18)
[2021-05-19] MEDS: ASCORBIC ACID 500 MG TABLET PO SCH ×2 (08:18→20:55)
[2021-05-19] MEDS: POTASSIUM CHLORIDE 20 MEQ TABLET PO SCH (08:18)
[2021-05-19] MEDS: MULTIVITAMIN (CENTRUM) TABLET PO SCH (08:18)
[2021-05-19] MEDS: FAMOTIDINE 20 MG TABLET PO SCH (08:18)
[2021-05-19] MEDS: FERROUS SULFATE 325 MG TABLET PO SCH (08:18)
[2021-05-19] MEDS: PANTOPRAZOLE 40 MG TABLET PO SCH (08:18)
[2021-05-19] MEDS: LOSARTAN 50 MG TABLET PO SCH (08:18)
[2021-05-19] MEDS: FUROSEMIDE 20 MG TABLET PO SCH (08:18)
[2021-05-19 08:21] LABS: Calcium 8.8 MG/DL (8.5-10.1); Osmolality,Calculated 267.4 MOS/KG (273-304); Potassium 4.4 MMOL/L (3.5-5.1)
[2021-05-19] MEDS: FLUTICASONE 50 MCG NASAL SPRAY 16 GM BOTTLE BOTH NARES SCH (08:23)
[2021-05-19 08:24] LABS: Band Neutrophils 1 % (0-10); Eosinophils 4 % (0-10); Hypochromia 1+; Lymphocytes 9 % (20-55); Microcytosis 1+; Platelet Estimate Adequate; Segmented Neutrophils 85 % (50-85); Total Cells Counted 100
[2021-05-19] MEDS: COLLAGENASE OINT 30 GM TUBE TOP SCH (10:20)
[2021-05-19] MEDS: OLOPATADINE 0.1% OPH SOLN 5 ML BOTTLE BOTH EYES SCH (10:55)
[2021-05-19] MEDS: LACTATED RINGERS 1,000 ML IV SCH ×2 (11:24→22:23)
[2021-05-19] MEDS ORDERED: LIDOCAINE 2% TOP JELLY 20 ML VIAL INTRAURETH ONE (12:20)
[2021-05-19] MEDS: ALBUTEROL 2.5 MG/3 ML NEB RESP TX SCH (19:20)
[2021-05-19] MEDS: APIXABAN 5 MG TABLET PO SCH (20:56)
[2021-05-19] MEDS: MELATONIN 3 MG TABLET PO SCH (22:47)
[2021-05-20] MEDS: VANCOMYCIN INJ 2,000 MG in SODIUM CHLORIDE 0.9% 500 ML IV SCH (00:07)
[2021-05-20] MEDS: KETOROLAC 15 MG/1 ML VIAL IV PRN ×2 (01:00→21:12)
[2021-05-20 03:55] LABS: ABG Base Excess 1.7 MMOL/L (-2.5-2.5); ABG HCO3 25.8 MMOL/L (20-26); ABG Oxygen Saturation 90.3 % (95-100); ABG PCO2 43.5 MM HG (35-48); ABG PH 7.398 (7.35-7.45); ABG PO2 62.5 MM HG (80-95); ABG TCO2 24.3 MMOL/L (23-27)
[2021-05-20] MEDS: PIPERACILLIN/TAZOBACTAM 3,375 MG in SODIUM CHLORIDE 0.9% 100 ML IV SCH ×3 (04:10→21:08)
[2021-05-20] MEDS: MORPHINE 2 MG/1 ML SYRINGE IV PRN (04:11)
[2021-05-20 05:34] LABS: Basophils % 0.2 % (0.0-0.8); Eosinophils # 0.1 10*3/uL (0.0-0.87); Hematocrit 34.6 VOL% (42.0-52.0); Hemoglobin 10.5 GM/DL (14.0-18.0); Immature Granulocytes Absolute 0.13 #; Lymphocytes # 1.2 10*3/uL (1.4-4.0); Lymphocytes % 9.7 % (21.2-54.2); Mean Corpuscular HGB Conc 30.3 GM/DL (32-36); Mean Corpuscular Volume 97.2 FL (87-102); Mean Platelet Volume 8.9 FL (9.6-12.0); Monocytes % 3.4 % (1.7-12.7); Neutrophils % 84.7 % (38.7-73.9); Platelet Count 224 T/CUMM (130-400); Red Blood Count 3.56 MC/CUMM (3.8-5.5); Red Cell Distribution Width 15.4 % (9.3-17.3); White Blood Count 12.4 T/CUMM (4-12)
[2021-05-20 05:45] LABS: Calcium 8.6 MG/DL (8.5-10.1); Osmolality,Calculated 273.1 MOS/KG (273-304); Potassium 4.7 MMOL/L (3.5-5.1)
[2021-05-20 06:16] LABS: Band Neutrophils 2 % (0-10); Eosinophils 4 % (0-10); Lymphocytes 10 % (20-55); Microcytosis 1+; Segmented Neutrophils 83 % (50-85); Total Cells Counted 100
[2021-05-20 06:17] LABS: Hypochromia 1+; Platelet Estimate Normal
[2021-05-20] MEDS: LACTATED RINGERS 1,000 ML IV SCH ×2 (06:27→17:43)
[2021-05-20] MEDS: ALBUTEROL 2.5 MG/3 ML NEB RESP TX SCH ×4 (07:20→19:13)
[2021-05-20] MEDS ORDERED: REGADENOSON 0.4 MG/5 ML SYRINGE IV ONE (09:37)
[2021-05-20] MEDS: APIXABAN 5 MG TABLET PO SCH ×2 (12:10→21:12)
[2021-05-20] MEDS: FERROUS SULFATE 325 MG TABLET PO SCH (12:10)
[2021-05-20] MEDS: POTASSIUM CHLORIDE 20 MEQ TABLET PO SCH (12:10)
[2021-05-20] MEDS: MULTIVITAMIN (CENTRUM) TABLET PO SCH (12:10)
[2021-05-20] MEDS: FLUTICASONE 50 MCG NASAL SPRAY 16 GM BOTTLE BOTH NARES SCH (12:10)
[2021-05-20] MEDS: SOTALOL 80 MG TABLET PO SCH ×2 (12:10→21:11)
[2021-05-20] MEDS: LOSARTAN 50 MG TABLET PO SCH (12:10)
[2021-05-20] MEDS: LORATADINE 10 MG TABLET PO SCH (12:10)
[2021-05-20] MEDS: FUROSEMIDE 20 MG TABLET PO SCH (12:10)
[2021-05-20] MEDS: FINASTERIDE 5 MG TABLET PO SCH (12:11)
[2021-05-20] MEDS: ZINC SULFATE 220 MG CAPSULE PO SCH (12:11)
[2021-05-20] MEDS: FAMOTIDINE 20 MG TABLET PO SCH (12:11)
[2021-05-20] MEDS: ASCORBIC ACID 500 MG TABLET PO SCH ×2 (12:11→21:12)
[2021-05-20] MEDS: OLOPATADINE 0.1% OPH SOLN 5 ML BOTTLE BOTH EYES SCH (12:11)
[2021-05-20] MEDS: CHOLECALCIFEROL 1,000 UNIT TABLET PO SCH (12:11)
[2021-05-20] MEDS: PANTOPRAZOLE 40 MG TABLET PO SCH (12:11)
[2021-05-20] MEDS: COLLAGENASE OINT 30 GM TUBE TOP SCH (12:13)
[2021-05-20] MEDS ORDERED: VANCOMYCIN INJ 2,000 MG in SODIUM CHLORIDE 0.9% 500 ML IV SCH (13:00)
[2021-05-20] MEDS: MELATONIN 3 MG TABLET PO SCH (21:11)
[2021-05-21] MEDS: MORPHINE 2 MG/1 ML SYRINGE IV PRN ×2 (00:12→18:04)
[2021-05-21] MEDS: ALBUTEROL 2.5 MG/3 ML NEB RESP TX SCH ×4 (00:27→19:50)
[2021-05-21] MEDS: PIPERACILLIN/TAZOBACTAM 3,375 MG in SODIUM CHLORIDE 0.9% 100 ML IV SCH ×3 (05:47→20:44)
[2021-05-21] MEDS: LOSARTAN 50 MG TABLET PO SCH (08:18)
[2021-05-21] MEDS: FAMOTIDINE 20 MG TABLET PO SCH (08:18)
[2021-05-21] MEDS: FERROUS SULFATE 325 MG TABLET PO SCH (08:18)
[2021-05-21] MEDS: ASCORBIC ACID 500 MG TABLET PO SCH ×2 (08:18→20:44)
[2021-05-21] MEDS: LORATADINE 10 MG TABLET PO SCH (08:18)
[2021-05-21] MEDS: MULTIVITAMIN (CENTRUM) TABLET PO SCH (08:18)
[2021-05-21] MEDS: CHOLECALCIFEROL 1,000 UNIT TABLET PO SCH (08:18)
[2021-05-21] MEDS: FUROSEMIDE 20 MG TABLET PO SCH (08:19)
[2021-05-21] MEDS: ZINC SULFATE 220 MG CAPSULE PO SCH (08:20)
[2021-05-21] MEDS: APIXABAN 5 MG TABLET PO SCH ×2 (08:20→20:45)
[2021-05-21] MEDS: SOTALOL 80 MG TABLET PO SCH ×2 (08:20→20:45)
[2021-05-21] MEDS: FINASTERIDE 5 MG TABLET PO SCH (08:20)
[2021-05-21] MEDS: POTASSIUM CHLORIDE 20 MEQ TABLET PO SCH (08:20)
[2021-05-21] MEDS: PANTOPRAZOLE 40 MG TABLET PO SCH (08:20)
[2021-05-21] MEDS: OLOPATADINE 0.1% OPH SOLN 5 ML BOTTLE BOTH EYES SCH (10:55)
[2021-05-21] MEDS: FLUTICASONE 50 MCG NASAL SPRAY 16 GM BOTTLE BOTH NARES SCH (10:55)
[2021-05-21] MEDS: COLLAGENASE OINT 30 GM TUBE TOP SCH (10:55)
[2021-05-21] MEDS ORDERED: SODIUM CHLORIDE 0.9% 100 ML IV ONE (11:03)
[2021-05-21] MEDS: MELATONIN 3 MG TABLET PO SCH (20:45)
[2021-05-21] MEDS: KETOROLAC 15 MG/1 ML VIAL IV PRN (20:45)
[2021-05-22] MEDS: ALBUTEROL 2.5 MG/3 ML NEB RESP TX SCH ×4 (00:51→19:10)
[2021-05-22] MEDS: PIPERACILLIN/TAZOBACTAM 3,375 MG in SODIUM CHLORIDE 0.9% 100 ML IV SCH ×3 (04:16→20:28)
[2021-05-22 05:29] LABS: Calcium 8.2 MG/DL (8.5-10.1); Osmolality,Calculated 269.1 MOS/KG (273-304); Potassium 5.4 MMOL/L (3.5-5.1)
[2021-05-22] MEDS: FLUTICASONE 50 MCG NASAL SPRAY 16 GM BOTTLE BOTH NARES SCH (08:33)
[2021-05-22] MEDS: ZINC SULFATE 220 MG CAPSULE PO SCH (08:34)
[2021-05-22] MEDS: ASCORBIC ACID 500 MG TABLET PO SCH ×2 (08:34→20:25)
[2021-05-22] MEDS: FUROSEMIDE 20 MG TABLET PO SCH (08:35)
[2021-05-22] MEDS: PANTOPRAZOLE 40 MG TABLET PO SCH (08:35)
[2021-05-22] MEDS: CHOLECALCIFEROL 1,000 UNIT TABLET PO SCH (08:35)
[2021-05-22] MEDS: MULTIVITAMIN (CENTRUM) TABLET PO SCH (08:35)
[2021-05-22] MEDS: FERROUS SULFATE 325 MG TABLET PO SCH (08:35)
[2021-05-22] MEDS: SOTALOL 80 MG TABLET PO SCH ×2 (08:35→20:24)
[2021-05-22] MEDS: FINASTERIDE 5 MG TABLET PO SCH (08:36)
[2021-05-22] MEDS: LOSARTAN 50 MG TABLET PO SCH (08:36)
[2021-05-22] MEDS: APIXABAN 5 MG TABLET PO SCH ×2 (08:36→20:25)
[2021-05-22] MEDS: FAMOTIDINE 20 MG TABLET PO SCH (08:36)
[2021-05-22] MEDS: LORATADINE 10 MG TABLET PO SCH (08:36)
[2021-05-22] MEDS: COLLAGENASE OINT 30 GM TUBE TOP SCH (10:15)
[2021-05-22] MEDS: POTASSIUM CHLORIDE 20 MEQ TABLET PO SCH (13:24)
[2021-05-22] MEDS: OLOPATADINE 0.1% OPH SOLN 5 ML BOTTLE BOTH EYES SCH (13:25)
[2021-05-22] MEDS: MELATONIN 3 MG TABLET PO SCH (20:25)
[2021-05-23] MEDS: ALBUTEROL 2.5 MG/3 ML NEB RESP TX SCH ×4 (00:45→19:02)
[2021-05-23] MEDS: PIPERACILLIN/TAZOBACTAM 3,375 MG in SODIUM CHLORIDE 0.9% 100 ML IV SCH ×3 (03:38→21:13)
[2021-05-23] MEDS: OLOPATADINE 0.1% OPH SOLN 5 ML BOTTLE BOTH EYES SCH (10:02)
[2021-05-23] MEDS: MULTIVITAMIN (CENTRUM) TABLET PO SCH (10:04)
[2021-05-23] MEDS: ZINC SULFATE 220 MG CAPSULE PO SCH (10:04)
[2021-05-23] MEDS: FUROSEMIDE 20 MG TABLET PO SCH (10:05)
[2021-05-23] MEDS: LOSARTAN 50 MG TABLET PO SCH (10:05)
[2021-05-23] MEDS: FAMOTIDINE 20 MG TABLET PO SCH (10:05)
[2021-05-23] MEDS: APIXABAN 5 MG TABLET PO SCH ×2 (10:05→21:14)
[2021-05-23] MEDS: LORATADINE 10 MG TABLET PO SCH (10:05)
[2021-05-23] MEDS: PANTOPRAZOLE 40 MG TABLET PO SCH (10:05)
[2021-05-23] MEDS: CHOLECALCIFEROL 1,000 UNIT TABLET PO SCH (10:05)
[2021-05-23] MEDS: FERROUS SULFATE 325 MG TABLET PO SCH (10:05)
[2021-05-23] MEDS: SOTALOL 80 MG TABLET PO SCH ×2 (10:05→21:14)
[2021-05-23] MEDS: ASCORBIC ACID 500 MG TABLET PO SCH ×2 (10:06→21:14)
[2021-05-23] MEDS: FINASTERIDE 5 MG TABLET PO SCH (10:06)
[2021-05-23] MEDS: POTASSIUM CHLORIDE 20 MEQ TABLET PO SCH (10:06)
[2021-05-23] MEDS: COLLAGENASE OINT 30 GM TUBE TOP SCH (10:06)
[2021-05-23] MEDS: FLUTICASONE 50 MCG NASAL SPRAY 16 GM BOTTLE BOTH NARES SCH (10:06)
[2021-05-23 11:18] LABS: Calcium 8.8 MG/DL (8.5-10.1); Osmolality,Calculated 275.8 MOS/KG (273-304); Potassium 4.1 MMOL/L (3.5-5.1)
[2021-05-23] MEDS: MELATONIN 3 MG TABLET PO SCH (21:14)
[2021-05-24] MEDS: ALBUTEROL 2.5 MG/3 ML NEB RESP TX SCH ×4 (00:11→21:18)
[2021-05-24] MEDS: MORPHINE 2 MG/1 ML SYRINGE IV PRN ×2 (01:25→23:03)
[2021-05-24] MEDS: PIPERACILLIN/TAZOBACTAM 3,375 MG in SODIUM CHLORIDE 0.9% 100 ML IV SCH (05:10)
[2021-05-24] MEDS ORDERED: DIAZEPAM 5 MG TABLET PO ONE (08:00)
[2021-05-24] MEDS: FUROSEMIDE 20 MG TABLET PO SCH (08:27)
[2021-05-24] MEDS: SOTALOL 80 MG TABLET PO SCH ×2 (08:27→20:28)
[2021-05-24] MEDS: LOSARTAN 50 MG TABLET PO SCH (08:27)
[2021-05-24] MEDS: LORATADINE 10 MG TABLET PO SCH (08:28)
[2021-05-24] MEDS: FERROUS SULFATE 325 MG TABLET PO SCH (08:28)
[2021-05-24] MEDS: FLUTICASONE 50 MCG NASAL SPRAY 16 GM BOTTLE BOTH NARES SCH (08:28)
[2021-05-24] MEDS: APIXABAN 5 MG TABLET PO SCH ×2 (08:28→20:29)
[2021-05-24] MEDS: MULTIVITAMIN (CENTRUM) TABLET PO SCH (08:28)
[2021-05-24] MEDS: POTASSIUM CHLORIDE 20 MEQ TABLET PO SCH (08:28)
[2021-05-24] MEDS: SODIUM CHLORIDE 0.45% 1,000 ML IV SCH ×2 (08:28→23:02)
[2021-05-24] MEDS: ASCORBIC ACID 500 MG TABLET PO SCH ×2 (08:29→20:29)
[2021-05-24] MEDS: OLOPATADINE 0.1% OPH SOLN 5 ML BOTTLE BOTH EYES SCH (08:29)
[2021-05-24] MEDS: FAMOTIDINE 20 MG TABLET PO SCH (08:29)
[2021-05-24] MEDS: ZINC SULFATE 220 MG CAPSULE PO SCH (08:29)
[2021-05-24] MEDS: CHOLECALCIFEROL 1,000 UNIT TABLET PO SCH (08:29)
[2021-05-24] MEDS: FINASTERIDE 5 MG TABLET PO SCH (08:29)
[2021-05-24] MEDS: PANTOPRAZOLE 40 MG TABLET PO SCH (08:29)
[2021-05-24] MEDS: COLLAGENASE OINT 30 GM TUBE TOP SCH (08:29)
[2021-05-24] MEDS ORDERED: MIDAZOLAM 2 MG/2 ML VIAL IV ONE (08:30)
[2021-05-24] MEDS ORDERED: fentaNYL 100 MCG/2 ML VIAL IV ONE (08:30)
[2021-05-24] MEDS ORDERED: HEPARIN/NACL 0.9% 2 UNITS/ML 4,000 UNIT/2,000 ML BAG IV ONE (10:50)
[2021-05-24] MEDS: AMPICILLIN INJ 1,000 MG in SODIUM CHLORIDE 0.9% 100 ML IV SCH ×3 (11:45→23:03)
[2021-05-24] MEDS: MELATONIN 3 MG TABLET PO SCH (20:28)
[2021-05-25] MEDS: ALBUTEROL 2.5 MG/3 ML NEB RESP TX SCH ×3 (01:56→13:45)
[2021-05-25] MEDS: AMPICILLIN INJ 1,000 MG in SODIUM CHLORIDE 0.9% 100 ML IV SCH ×2 (05:14→11:59)
[2021-05-25] MEDS: ASCORBIC ACID 500 MG TABLET PO SCH (08:16)
[2021-05-25] MEDS: FUROSEMIDE 20 MG TABLET PO SCH (08:16)
[2021-05-25] MEDS: LORATADINE 10 MG TABLET PO SCH (08:16)
[2021-05-25] MEDS: MULTIVITAMIN (CENTRUM) TABLET PO SCH (08:16)
[2021-05-25] MEDS: LOSARTAN 50 MG TABLET PO SCH (08:16)
[2021-05-25] MEDS: ZINC SULFATE 220 MG CAPSULE PO SCH (08:16)
[2021-05-25] MEDS: CHOLECALCIFEROL 1,000 UNIT TABLET PO SCH (08:16)
[2021-05-25] MEDS: FAMOTIDINE 20 MG TABLET PO SCH (08:17)
[2021-05-25] MEDS: APIXABAN 5 MG TABLET PO SCH (08:17)
[2021-05-25] MEDS: POTASSIUM CHLORIDE 20 MEQ TABLET PO SCH (08:17)
[2021-05-25] MEDS: PANTOPRAZOLE 40 MG TABLET PO SCH (08:17)
[2021-05-25] MEDS: FINASTERIDE 5 MG TABLET PO SCH (08:17)
[2021-05-25] MEDS: SOTALOL 80 MG TABLET PO SCH (08:17)
[2021-05-25] MEDS: SODIUM CHLORIDE 0.45% 1,000 ML IV SCH (09:53)
[2021-05-25] MEDS: FERROUS SULFATE 325 MG TABLET PO SCH (09:54)
[2021-05-25] MEDS: OLOPATADINE 0.1% OPH SOLN 5 ML BOTTLE BOTH EYES SCH (09:54)
[2021-05-25] MEDS: FLUTICASONE 50 MCG NASAL SPRAY 16 GM BOTTLE BOTH NARES SCH (09:54)
[2021-05-25] MEDS: COLLAGENASE OINT 30 GM TUBE TOP SCH (09:54)
[2021-05-25 16:46] VITALS: BP 136/60
== END 2021-05-25 18:37 | disposition home health service (06) | DRG 253 ==
LOC: N.3E 17:56
PROVIDERS: ADMIT Surgery; ATTEND Surgery